=== PATIENT | female | born 2000 | race Hispanic/Latino ===

== ENCOUNTER 2024-05-21 16:02 | Emergency (ER) | payer OTHER ==
[~2024-05-21] VITALS: Ht 152.4 cm; Wt 63.5 kg
[2024-05-21 16:18] VITALS: PULSE 61; RESP 18; TEMP 97.9; O2SAT 99
[2024-05-21] MEDS ORDERED: AMOX TR-K CLV1 EAC2 PO (17:10)
[2024-05-21] MEDS ORDERED: FLONASE ALLERG9.9 ML INH (17:10)
== END 2024-05-21 17:35 | disposition home or self-care (01) ==
LOC: FSED 16:06
DX: R05.9 Cough, unspecified (principal); J06.9 Acute upper respiratory infection, unspecified; R09.81 Nasal congestion; Z11.52 Encounter for screening for COVID-19
CPT/HCPCS: 0223U; 83518; 87400; 99283